=== PATIENT | female | born 1960 | race Caucasian/White ===

== ENCOUNTER 2016-10-20 17:02 | Emergency (ER) | payer OTHER ==
[~2016-10-20] VITALS: Ht 152.4 cm; Wt 78.1 kg
[~2016-10-20 17:02] MED LIST: ALUMINUM & MAG355 ML PO; AMO500 PO; BIA500 PO; CARAFATE1 GM PO; PRI20 PO; ZOFRAN ODT4 MG SL
[2016-10-20 18:48] LABS: BASOPHIL % 0.8 % (0-2); PLATELET COUNT 278 x10^3mcL (130-400); RED CELL DISTRIBUTION WIDTH 13.6 % (11.5-14.5)
[2016-10-20 18:56] LABS: CARBON DIOXIDE 28.5 mmol/L (21-32); CHLORIDE SERUM 105 mmol/L (98-107); CREATININE SERUM 0.7 mg/dL (0.6-1.0); GFR1 > 60 mL/min; GLUCOSE SERUM 101 mg/dL (74-106); POTASSIUM SERUM 3.7 mmol/L (3.5-5.1); SODIUM SERUM 141 mmol/L (136-145)
[2016-10-20 19:01] LABS: ALBUMIN 3.7 g/dL (3.4-5.0); ALKALINE PHOSPHATASE 102 U/L (46-116); ALT/SGPT 26 U/L (14-59); AST/SGOT 20 U/L (15-37); BILIRUBIN TOTAL 0.27 mg/dL (0.20-1.00); TOTAL PROTEIN, SERUM 6.7 g/dL (6.4-8.2)
[2016-10-20 21:01] VITALS: BP 145/82
== END 2016-10-20 21:01 | disposition home or self-care (01) ==
LOC: ED 17:02
PROVIDERS: Emergency Medicine
DX: H92.01 Otalgia, right ear (principal); R51 Headache; R09.81 Nasal congestion; M79.601 Pain in right arm; Z88.5 Allergy status to narcotic agent; I10 Essential (primary) hypertension; E11.9 Type 2 diabetes mellitus without complications; K21.9 Gastro-esophageal reflux disease without esophagitis; Z87.11 Personal history of peptic ulcer disease; Z98.890 Other specified postprocedural states
CPT/HCPCS: 82962; J1885

== ENCOUNTER 2016-12-17 16:12 | Emergency (ER) | payer OTHER ==
[~2016-12-17] VITALS: Ht 152.4 cm; Wt 83.0 kg
[2016-12-17 16:25] VITALS: BP 135/77
== END 2016-12-17 18:42 | disposition home or self-care (01) ==
LOC: ED 16:12
DX: S40.011A Contusion of right shoulder, initial encounter (principal); G89.29 Other chronic pain; M54.2 Cervicalgia; I10 Essential (primary) hypertension; E66.9 Obesity, unspecified; F17.210 Nicotine dependence, cigarettes, uncomplicated; E11.9 Type 2 diabetes mellitus without complications; Z88.5 Allergy status to narcotic agent; W01.0XXA Fall on same level from slipping, tripping and stumbling without subsequent striking against object, initial encounter; Y93.89 Activity, other specified; Y99.8 Other external cause status; Y92.89 Other specified places as the place of occurrence of the external cause

== ENCOUNTER 2017-05-25 11:57 | Emergency (ER) | payer OTHER ==
[~2017-05-25] VITALS: Ht 152.4 cm; Wt 90.7 kg
[2017-05-25 12:03] VITALS: BP 144/73
== END 2017-05-25 14:19 | disposition home or self-care (01) ==
LOC: ED 11:57
DX: M72.2 Plantar fascial fibromatosis (principal)
CPT/HCPCS: J1885; Q0092

== ENCOUNTER 2017-09-05 17:52 | Emergency (ER) | payer OTHER ==
[~2017-09-05] VITALS: Ht 154.9 cm; Wt 87.2 kg
[2017-09-05 19:04] LABS: BASOPHIL % 0.2 % (0-2); PLATELET COUNT 293 x10^3mcL (130-400)
[2017-09-05 19:15] LABS: CALCIUM 8.8 mg/dL (8.5-10.1); CARBON DIOXIDE 26.5 mmol/L (21-32); CHLORIDE SERUM 104 mmol/L (98-107); CREATININE SERUM 0.9 mg/dL (0.6-1.0); GFR1 > 60 mL/min; GLUCOSE SERUM 209 mg/dL (74-106); POTASSIUM SERUM 3.9 mmol/L (3.5-5.1); SODIUM SERUM 141 mmol/L (136-145)
[2017-09-05 19:19] LABS: ALBUMIN 3.4 g/dL (3.4-5.0); ALKALINE PHOSPHATASE 95 U/L (46-116); ALT/SGPT 61 U/L (14-59); AST/SGOT 28 U/L (15-37); BILIRUBIN TOTAL 0.3 mg/dL (0.20-1.00); CHOLESTEROL 178 mg/dL (<200); LIPASE 123 IU/L (73-393); TOTAL PROTEIN, SERUM 6.8 g/dL (6.4-8.2)
[2017-09-05 19:20] LABS: CHOLESTEROL/HDL RATIO 6.1; HDL CHOLESTEROL 29 mg/dL (40-60); TRIGLYCERIDES 294 mg/dL (<150)
[2017-09-05 19:42] LABS: T3 TOTAL 0.84 ng/mL
[2017-09-05 19:43] LABS: FREE T4 0.8 ng/dL (0.76-1.46); T4(THYROXINE) 5.6 ug/dL (4.7-13.3)
[2017-09-05 20:02] VITALS: BP 116/59
== END 2017-09-05 20:02 | disposition home or self-care (01) ==
LOC: ED 17:52
PROVIDERS: Specialist
DX: R07.89 Other chest pain (principal); I10 Essential (primary) hypertension; E11.9 Type 2 diabetes mellitus without complications; Z85.528 Personal history of other malignant neoplasm of kidney
CPT/HCPCS: 36415; 83880; 84439; J1885; J3010; Q0162

== ENCOUNTER 2017-10-20 09:30 | Emergency (ER) | payer OTHER ==
[~2017-10-20] VITALS: Ht 165.1 cm; Wt 86.6 kg
[2017-10-20 09:56] VITALS: Ht 165.1 cm; Wt 86.6 kg
[2017-10-20 11:52] VITALS: BP 155/97
== END 2017-10-20 12:02 | disposition home or self-care (01) ==
LOC: ED 09:30
DX: M54.5 Low back pain (principal); I10 Essential (primary) hypertension
CPT/HCPCS: J1885